=== PATIENT | female | born 1960 | race Caucasian/White ===

== ENCOUNTER 2016-12-08 08:19 | Inpatient (IN) | payer MEDICARE ==
[~2016-12-08] VITALS: Ht 165.1 cm; Wt 101.4 kg
[2016-12-08] MEDS ORDERED: DILAUDID 1 MG/ML AMP ONE ×2 (08:59→09:20)
[2016-12-08] MEDS ORDERED: ONDANSETRON 4 MG VIAL IV PUSH PRN (09:20)
[2016-12-08] MEDS ORDERED: ALU/MAG/SIM 30 ML UDC PO PRN (09:20)
[2016-12-08] MEDS ORDERED: ALPRAZOLAM 0.25 MG TAB PO PRN (09:20)
[2016-12-08] MEDS ORDERED: LACTULOSE SOLN 20GM/30ML UDC PO PRN (09:20)
[2016-12-08] MEDS ORDERED: DEXTROSE 50% SYRINGE 50 ML IV PRN (09:20)
[2016-12-08] MEDS ORDERED: SALINE FLUSH 10 ML FLUSH PRN (09:20)
[2016-12-08] MEDS ORDERED: ACETAMINOPHEN 325 MG TAB PO PRN (09:20)
[2016-12-08] MEDS ORDERED: GLUCAGON 1 MG VIAL IM PRN (09:20)
[2016-12-08] MEDS ORDERED: PROMETHAZINE 25 MG/ML VIAL IV PRN (09:20)
[2016-12-08] MEDS ORDERED: TDaP 0.5 ML VIAL IM.VACC ONE (09:36)
[2016-12-08] MEDS ORDERED: BACITRACIN 50,000 UNITS INJ IRRIG ONE (10:31)
[2016-12-08 11:00] VITALS: BP_SYST 130; BP_SYST 150; RESP 18; TEMP 97.7; Ht 165.1 cm; Wt 101.4 kg
[2016-12-08] MEDS: OXYCODONE/APAP 5/325 TAB PO PRN ×3 (11:27→21:07)
[2016-12-08] MEDS: NICOTINE 7 MG/24 HR TRANSDERM SCH (11:48)
[2016-12-08] MEDS: DILAUDID 1 MG/ML AMP IV PRN ×2 (14:30→18:54)
[2016-12-08 15:00] VITALS: BP_SYST 139; RESP 18; TEMP 98.3
[2016-12-08] MEDS ORDERED: CEFAZOLIN 2,000 MG in SODIUM CHLORIDE 0.9% 100 ML IV ONE (15:55)
[2016-12-08 19:47] VITALS: BP_SYST 124; RESP 18; TEMP 98.6
[2016-12-08] MEDS: SALINE FLUSH 10 ML FLUSH SCH (20:37)
[2016-12-08 23:34] VITALS: BP_SYST 127; RESP 18; TEMP 98.3
[2016-12-09] VITALS (16 sets, daily range): BP systolic 101–163; RESP 14–20; TEMP 97.8–99.3
[2016-12-09] MEDS: DILAUDID 1 MG/ML AMP IV PRN ×4 (00:29→23:13)
[2016-12-09] MEDS: SODIUM CHLORIDE 0.9% FLUSH BAG 500 ML IV SCH (05:42)
[2016-12-09] MEDS ORDERED: CEFAZOLIN 2,000 MG in SODIUM CHLORIDE 0.9% 100 ML IV ONE (06:00)
[2016-12-09] MEDS ORDERED: MORPHINE 4 MG/ML SYR IV PRN ×2 (08:00→13:30)
[2016-12-09] MEDS ORDERED: ONDANSETRON 4 MG VIAL IV PRN ×3 (08:00→13:30)
[2016-12-09] MEDS ORDERED: OXYCODONE 5 MG TAB PO PRN (08:00)
[2016-12-09] MEDS ORDERED: MEPERIDINE 25 MG/ML IV PRN (08:00)
[2016-12-09] MEDS ORDERED: MORPHINE 2 MG/ML SYR IV PRN ×3 (08:00→13:30)
[2016-12-09] MEDS ORDERED: DILAUDID 1 MG/ML AMP IV PRN (08:00)
[2016-12-09] MEDS ORDERED: DUONEB INH ONE (08:39)
[2016-12-09] MEDS: NICOTINE 7 MG/24 HR TRANSDERM SCH (10:12)
[2016-12-09] MEDS: SALINE FLUSH 10 ML FLUSH SCH ×2 (10:13→20:00)
[2016-12-09] MEDS ORDERED: ONDANSETRON 4 MG VIAL IV PUSH ONE (10:27)
[2016-12-09] MEDS ORDERED: LIDOCAINE 2% SYR 5 ML IV ONE (10:27)
[2016-12-09] MEDS ORDERED: GLYCOPYRROLATE 0.2 MG/ML VIAL IV ONE (10:27)
[2016-12-09] MEDS ORDERED: MIDAZOLAM 2 MG/2 ML INJ IV ONE (10:27)
[2016-12-09] MEDS ORDERED: ROCURONIUM 50 MG VIAL IV ONE (10:27)
[2016-12-09] MEDS ORDERED: SUCCINYLCHOLINE 20 MG/ML VL IV ONE (10:27)
[2016-12-09] MEDS ORDERED: NEOSTIGMINE 10 MG/10 ML VIAL IV ONE (10:27)
[2016-12-09] MEDS ORDERED: PROPOFOL 20 ML VIAL IV ONE (10:27)
[2016-12-09] MEDS ORDERED: FENTANYL 100 MCG/2 ML AMP IV ONE (10:27)
[2016-12-09] MEDS: DUONEB INH SCH ×4 (11:00→22:31)
[2016-12-09] MEDS: OXYCODONE/APAP 5/325 TAB PO PRN ×2 (12:23→16:27)
[2016-12-09] MEDS: CEFAZOLIN 2,000 MG in SODIUM CHLORIDE 0.9% 100 ML IV SCH ×2 (12:45→18:40)
[2016-12-09] MEDS: GABAPENTIN 100 MG CAP PO SCH (12:45)
[2016-12-09] MEDS ORDERED: CEFAZOLIN 2,000 MG in SODIUM CHLORIDE 0.9% 100 ML IV SCH (13:00)
[2016-12-09] MEDS ORDERED: LACT RINGERS 1,000 ML IV SCH (13:30)
[2016-12-09] MEDS ORDERED: ACETAMINOPHEN 325 MG TAB PO PRN (13:30)
[2016-12-09] MEDS ORDERED: TEMAZEPAM 15 MG CAP PO PRN (13:30)
[2016-12-09] MEDS ORDERED: KETOROLAC 30 MG/ML VIAL IV PRN (13:30)
[2016-12-09] MEDS ORDERED: DIPHENHYDRAMINE 25 MG CAP PO PRN (13:30)
[2016-12-09] MEDS ORDERED: OXYCODONE/APAP 5/325 TAB PO PRN (15:15)
[2016-12-09] MEDS: MORPHINE 4 MG/ML SYR IV PRN (17:46)
[2016-12-09] MEDS: Atorvastatin 10 MG TAB PO SCH (21:14)
[2016-12-09] MEDS: DOCUSATE SOD 100 MG CAP PO SCH (21:14)
[2016-12-10] MEDS: CEFAZOLIN 2,000 MG in SODIUM CHLORIDE 0.9% 100 ML IV SCH ×2 (01:11→06:09)
[2016-12-10] MEDS: MORPHINE 4 MG/ML SYR IV PRN ×3 (01:11→06:10)
[2016-12-10] MEDS: DUONEB INH SCH ×6 (02:00→23:00)
[2016-12-10] MEDS: OXYCODONE/APAP 5/325 TAB PO PRN ×3 (02:13→19:55)
[2016-12-10 02:45] VITALS: BP_SYST 167; RESP 18; TEMP 98.7
[2016-12-10] MEDS: DILAUDID 1 MG/ML AMP IV PRN ×2 (03:31→05:05)
[2016-12-10] MEDS: SODIUM CHLORIDE 0.9% FLUSH BAG 500 ML IV SCH (05:16)
[2016-12-10] MEDS: ENOXAPARIN 40 MG/0.4 ML SYR SUBQ SCH ×2 (05:58→06:10)
[2016-12-10 07:38] VITALS: BP_SYST 149; RESP 20; TEMP 99.3
[2016-12-10] MEDS: SALINE FLUSH 10 ML FLUSH SCH ×2 (08:00→22:04)
[2016-12-10] MEDS: MAG HYDROX 30 ML UDC PO SCH ×2 (09:14→22:07)
[2016-12-10] MEDS: GABAPENTIN 100 MG CAP PO SCH (09:14)
[2016-12-10] MEDS: SENNA 8.6 MG TAB PO SCH ×2 (09:14→22:04)
[2016-12-10] MEDS: DOCUSATE SOD 100 MG CAP PO SCH ×2 (09:14→22:04)
[2016-12-10] MEDS: NICOTINE 7 MG/24 HR TRANSDERM SCH (09:19)
[2016-12-10] MEDS: METOPROLOL XL 50 MG TAB PO SCH (09:33)
[2016-12-10 11:59] VITALS: BP_SYST 157; RESP 20; TEMP 96
[2016-12-10] MEDS ORDERED: BISACODYL 10 MG SUPP RECTAL PRN (14:40)
[2016-12-10 16:29] VITALS: BP_SYST 147; RESP 18; TEMP 98
[2016-12-10 19:21] VITALS: BP_SYST 160; RESP 16; TEMP 98.9
[2016-12-10] MEDS: Atorvastatin 10 MG TAB PO SCH (22:04)
[2016-12-10 23:01] VITALS: BP_SYST 183; RESP 16; TEMP 97.7
[2016-12-11] VITALS (8 sets, daily range): BP systolic 143–216; RESP 16–20; TEMP 97–98.3
[2016-12-11] MEDS: DUONEB INH SCH ×6 (02:35→22:16)
[2016-12-11] MEDS ORDERED: Losartan 50 MG TAB PO ONE (03:22)
[2016-12-11] MEDS: SODIUM CHLORIDE 0.9% FLUSH BAG 500 ML IV SCH (05:21)
[2016-12-11] MEDS: ENOXAPARIN 40 MG/0.4 ML SYR SUBQ SCH ×2 (05:21→06:11)
[2016-12-11] MEDS: MAG HYDROX 30 ML UDC PO SCH ×3 (08:00→19:54)
[2016-12-11] MEDS: SALINE FLUSH 10 ML FLUSH SCH ×3 (09:04→20:04)
[2016-12-11] MEDS: OXYCODONE/APAP 5/325 TAB PO PRN ×2 (09:08→20:05)
[2016-12-11] MEDS: Losartan 50 MG TAB PO SCH (09:09)
[2016-12-11] MEDS: SENNA 8.6 MG TAB PO SCH ×2 (09:09→20:04)
[2016-12-11] MEDS: DOCUSATE SOD 100 MG CAP PO SCH ×2 (09:09→20:04)
[2016-12-11] MEDS: GABAPENTIN 100 MG CAP PO SCH (09:09)
[2016-12-11] MEDS: METOPROLOL XL 50 MG TAB PO SCH (09:09)
[2016-12-11] MEDS: NICOTINE 7 MG/24 HR TRANSDERM SCH (09:09)
[2016-12-11] MEDS ORDERED: MISSING DOSE XX ONE (20:05)
[2016-12-11] MEDS: Atorvastatin 10 MG TAB PO SCH (20:57)
[2016-12-12] VITALS (9 sets, daily range): BP systolic 142–164; RESP 16–26; TEMP 98.3–99
[2016-12-12] MEDS: DUONEB INH SCH ×6 (02:47→22:30)
[2016-12-12] MEDS: SODIUM CHLORIDE 0.9% FLUSH BAG 500 ML IV SCH (05:36)
[2016-12-12] MEDS: ENOXAPARIN 40 MG/0.4 ML SYR SUBQ SCH ×2 (05:44→05:45)
[2016-12-12] MEDS: OXYCODONE/APAP 5/325 TAB PO PRN ×3 (06:31→20:40)
[2016-12-12] MEDS: MAG HYDROX 30 ML UDC PO SCH ×3 (07:56→20:00)
[2016-12-12] MEDS: SALINE FLUSH 10 ML FLUSH SCH ×2 (07:57→20:00)
[2016-12-12] MEDS: DOCUSATE SOD 100 MG CAP PO SCH ×2 (08:02→20:40)
[2016-12-12] MEDS: METOPROLOL XL 50 MG TAB PO SCH (08:02)
[2016-12-12] MEDS: SENNA 8.6 MG TAB PO SCH ×2 (08:02→20:41)
[2016-12-12] MEDS: Losartan 50 MG TAB PO SCH (08:02)
[2016-12-12] MEDS ORDERED: MISSING DOSE XX ONE (08:05)
[2016-12-12] MEDS: NICOTINE 7 MG/24 HR TRANSDERM SCH (08:58)
[2016-12-12] MEDS: GABAPENTIN 100 MG CAP PO SCH (08:59)
[2016-12-12] MEDS: Atorvastatin 10 MG TAB PO SCH (20:39)
[2016-12-12] MEDS ORDERED: DEXTROSE 50% SYRINGE 50 ML IV ONE (22:55)
[2016-12-13] MEDS: DUONEB INH SCH ×3 (02:24→11:00)
[2016-12-13 04:16] VITALS: BP_SYST 152
[2016-12-13 04:17] VITALS: TEMP 98.4
[2016-12-13 04:19] VITALS: RESP 18
[2016-12-13] MEDS: ENOXAPARIN 40 MG/0.4 ML SYR SUBQ SCH ×2 (05:24→05:28)
[2016-12-13] MEDS: SODIUM CHLORIDE 0.9% FLUSH BAG 500 ML IV SCH (05:24)
[2016-12-13] MEDS: OXYCODONE/APAP 5/325 TAB PO PRN ×2 (05:28→12:03)
[2016-12-13] MEDS: MAG HYDROX 30 ML UDC PO SCH ×2 (07:37→08:01)
[2016-12-13] MEDS: DOCUSATE SOD 100 MG CAP PO SCH ×2 (07:58→08:02)
[2016-12-13] MEDS: SALINE FLUSH 10 ML FLUSH SCH (07:58)
[2016-12-13 07:59] VITALS: BP_SYST 173; RESP 16; TEMP 98
[2016-12-13] MEDS: NICOTINE 7 MG/24 HR TRANSDERM SCH (07:59)
[2016-12-13] MEDS: Losartan 50 MG TAB PO SCH (08:00)
[2016-12-13] MEDS: GABAPENTIN 100 MG CAP PO SCH (08:00)
[2016-12-13] MEDS: SENNA 8.6 MG TAB PO SCH ×2 (08:01→08:02)
[2016-12-13] MEDS ORDERED: METOPROLOL XL 100 MG TAB PO SCH (09:00)
[2016-12-13 11:27] VITALS: BP_SYST 149; RESP 16; TEMP 98.4
[2016-12-13 12:22] VITALS: BP_SYST 149; RESP 16; TEMP 98.4
== END 2016-12-13 15:09 | disposition home health service (06) | DRG 482 ==
LOC: ENRESERVTM → ENRESERVDT → ER 08:19 → EMR 09:28 → ENPENDDIS 09:28 → 2NO 10:54
PROVIDERS: ADMIT Internal Medicine Nephrology; ATTEND Internal Medicine Nephrology
PROC: 0QS606Z Reposition Right Upper Femur with Intramedullary Internal Fixation Device, Open Approach (ICD-10-PCS; principal; 2016-12-08)
DX: S72.011A Unspecified intracapsular fracture of right femur, initial encounter for closed fracture (principal); I10 Essential (primary) hypertension; W01.0XXA Fall on same level from slipping, tripping and stumbling without subsequent striking against object, initial encounter; Y93.9 Activity, unspecified; Y92.007 Garden or yard of unspecified non-institutional (private) residence as the place of occurrence of the external cause; E78.5 Hyperlipidemia, unspecified; J44.9 Chronic obstructive pulmonary disease, unspecified; E11.9 Type 2 diabetes mellitus without complications; G89.29 Other chronic pain; M54.5 Low back pain; E55.9 Vitamin D deficiency, unspecified; Z72.0 Tobacco use
CPT/HCPCS: 36415; 71010; 72192; 76000; 80048; 80053; 80069; 82947; 85014; 85018; 85025; 85610; 85730; 90471; 93005; 94640; 94762; 94799; 96374; 96376